=== PATIENT | female | born 1990 | race Caucasian/White ===

== ENCOUNTER 2025-03-24 21:29 | Emergency (ER) | payer OTHER, SELFPAY ==
[2025-03-24 21:35] VITALS: BP 168/79; PULSE 113; RESP 18; TEMP 37.1; O2SAT 100; BMI 60.0
--- NOTE | 2025-03-24 21:38 | DI.RAD.S_ITS ---
PROCEDURE: XR KNEE LT 1TO2V INDICATIONS: fall TECHNIQUE: 2 views of the knee were acquired. COMPARISON: None. FINDINGS: Bones: No fractures or dislocations. No suspicious bony lesions. Soft tissues: No joint effusion. No suspicious soft tissue calcifications. IMPRESSION: No acute bony abnormality or significant effusion. If symptoms persist with conservative management, consider cross-sectional imaging such as CT or MRI. Approved by: Sarah Vickers M.D.,Ph.D. on 03/24/2025 at 22:45
--- NOTE | 2025-03-24 21:38 | DI.RAD.S_ITS ---
PROCEDURE: XR RIBS RT 2V INDICATIONS: fall TECHNIQUE: 4 views of the ribs were acquired. COMPARISON: None. FINDINGS: Surgical changes and devices: None. Bones and chest wall: No fractures or dislocations. No suspicious bony lesions. Overlying soft tissues appear unremarkable. Lungs and pleura: The visualized lung appears clear. No pleural effusions or pneumothorax are visible. IMPRESSION: No acute displaced rib fracture. Approved by: Sarah Vickers M.D.,Ph.D. on 03/24/2025 at 22:46
[2025-03-24 22:52] VITALS: BP 179/108; O2SAT 100
--- NOTE | 2025-03-24 23:50 | ED.FALL ---
HPI - Fall General Chief Complaint: Fall Stated Complaint: Fall; L Knee/ R Side Rib pain Time Seen by Provider: 03/24/25 21:50 Source: patient Mode of arrival: Ambulatory History of Present Illness HPI Narrative: 34-year-old female got out of the shower had a mechanical fall landing on the right side of her chest hitting the toilet seat and her left knee went in the opposite direction now having difficulty breathing and ambulating at this time. Patient denies headache,dizziness, blurred vision, chest pain, shortness of breath, neck pain, bowel or bladder incontinence, or loss of consciousness. Patient has not taken anything prior to arrival. Other than what is stated 14 point review of system is negative. Related Data Home Medications ?Medication ?Instructions ?Recorded ?Confirmed ibuprofen 400 mg tablet 400 mg PO PRN ##0 11/26/11 Previous Rx's ?Medication ?Instructions ?Recorded diclofenac sodium 75 mg 75 mg PO BID PRN pain #30 tabs 03/25/25 tablet,delayed release Allergies Allergy/AdvReac Type Severity Reaction Status Date / Time SULFA Allergy Unknown Familiy Uncoded 03/24/25 21:35 allergy Review of Systems Review of Systems ROS Unobtainable: All systems reviewed & are unremarkable except as noted in HPI and below Patient History Smoking Status: Never smoker Exam Narrative Exam Narrative: GENERAL: [34] year old patient appears stated age. Well-developed patient, in mild distress. HEAD: Atraumatic. Normocephalic. EYES: Pupils equal round and reactive. Extraocular motions intact. No scleral icterus. No injection or drainage. ENT: Nose without bleeding, purulent drainage. Throat without erythema, tonsillar hypertrophy or exudate. Airway patent. NECK: Trachea midline. Non tender CARDIOVASCULAR: Regular rate and rhythm without murmurs, gallops, or rubs. RESPIRATORY: Clear to auscultation. Breath sounds equal bilaterally. No wheezes, rales, or rhonchi. Right posterolateral ribs 4 through 10 tender to palpation GASTROINTESTINAL: Abdomen soft, non-tender, nondistended. EXTREMITIES: No edema or joint tenderness. Left knee flexion to 30? medial and lateral joint line tenderness to palpate, anterior-posterior drawer varus valgus Mckenzie Narciso intact, +2 DP +2 PT cap refill less than 2nd BACK: Nontender without deformity or crepitance. No flank tenderness. NEURO: AOx3. SKIN: No rash or erythema of visible areas Initial Vital Signs Initial Vital Signs: Vital Signs Temperature 98.7 F 03/24/25 21:35 Pulse Rate 113 H 03/24/25 21:35 Respiratory Rate 18 03/24/25 21:35 Blood Pressure 168/79 H 03/24/25 21:35 Pulse Oximetry 100 03/24/25 21:35 Oxygen Delivery Method Room Air 03/24/25 21:35 Course Orders Ordered: ED Orders 03/24/25 21:38 XR knee LT 1to2V Stat XR ribs RT 2V Stat Vital Signs Vital signs: Vital Signs - 8 hr 03/24/25 21:35 Temperature 98.7 F Pulse Rate 113 H Respiratory Rate 18 Blood Pressure 168/79 H Pulse Oximetry 100 Oxygen Delivery Method Room Air MDM - Fall Imaging Data Chest x-ray: Radiologist's Impression: [address] [address] XRay Report Signed Patient: Pete Ervin MR#: [id number] : 06/22/2005 Acct:[id number] Age/Sex: 19 / F Date of Service: 03/24/25 Loc: ED Accession Number: [id number] Procedure: XR chest 1V Ordering Provider: Frankie Bess D.O. PROCEDURE: XR CHEST 1V INDICATIONS: suspected sepsis TECHNIQUE: One view of the chest was acquired. COMPARISON: None. FINDINGS: Surgical changes and devices: None. Lungs and pleura: Multifocal opacities in the right mid and lower lung. No pleural effusions or pneumothorax. Mediastinum: Mediastinal contours appear normal. Heart size is normal. Bones and chest wall: No suspicious bony lesions. Overlying soft tissues appear unremarkable. IMPRESSION: Right mid and lower lung pneumonia. Extremity x-ray #1: Radiologist's Impression: [address] [address] XRay Report Signed Patient: Tea Grant MR#: [id number] : 1990 Acct:[id number] Age/Sex: 34 / F Date of Service: 03/24/25 Loc: ED Accession Number: [id number] Procedure: XR knee LT 1to2V Ordering Provider: Frankie Bess D.O. PROCEDURE: XR KNEE LT 1TO2V INDICATIONS: fall TECHNIQUE: 2 views of the knee were acquired. COMPARISON: None. FINDINGS: Bones: No fractures or dislocations. No suspicious bony lesions. Soft tissues: No joint effusion. No suspicious soft tissue calcifications. IMPRESSION: No acute bony abnormality or significant effusion. MDM Narrative Medical decision making narrative: Vital signs, nurse triage note, medication list, previous ER visits, and all imaging studies reviewed. X-rays of chest ribs and knee showed no acute process. Patient given ibuprofen and [place] here. DC home on diclofenac rx. Diffential diagnosis includes pneumothorax, rib fracture, contusion, tendon, ligament injury, fracture, dislocation. Follow up with Orthopedics and or PCP 1-2 weeks if no improvement in symptoms. Discharge Plan Departure Patient Disposition: Home Clinical Impression: Acute knee pain, Contusion of rib Instructions: DI for Knee Pain Activity Restrictions/Additional Instructions: Return with new or worsening symptoms. Take your medicine as directed. Follow up with ortho MD referral. Prescriptions: New diclofenac sodium 75 mg tablet,delayed release (DR/EC) 75 mg PO BID PRN (Reason: pain) Qty: 30 0RF No Action ibuprofen 400 MG tablet 400 mg PO PRN Qty: 0 Referrals: Jamie Kraus MD [Physician, Orthopedic Surgery] - 3-5 days Referral Note: L knee pain, Xray neg, immobilizer and crutches, concern for possible ligament and or meniscus injury Stand Alone Forms: Patient Portal/API
[2025-03-25 00:04] VITALS: PULSE 104; O2SAT 99
[2025-03-25 00:06] VITALS: BP 152/67; PULSE 103; O2SAT 99
[2025-03-25] MEDS: IBUPROFEN 400 MG TABLET 800 MG PO (00:06)
[2025-03-25] MEDS: HYDROCODONE/ACET 5/325 TABLET 1 TAB PO (00:06)
== END 2025-03-25 00:43 | disposition home or self-care (01) ==
PROVIDERS: Emergency Provider Family Medicine
DX: S20.20XA Contusion of thorax, unspecified, initial encounter (principal); M25.562 Pain in left knee; R06.00 Dyspnea, unspecified; W18.09XA Striking against other object with subsequent fall, initial encounter
CPT/HCPCS: 71100; 73560; 99283

== ENCOUNTER 2025-07-02 16:17 | Inpatient (IN) | payer OTHER, SELFPAY ==
[2025-07-02] VITALS (23 sets, daily range): BP systolic 137–184; BP diastolic 67–94; PULSE 111–151; RESP 14–28; TEMP 36.7–37.8; O2SAT 93–99; BMI 51.5
--- NOTE | 2025-07-02 16:25 | ED.SEPSIS ---
HPI - Sepsis <Frankie Bess DO - Last Filed: 07/02/25 17:53> General Chief Complaint: Shortness of Breath/Dyspnea Evaluation Sepsis Onset Time: 16:26 Narrative: 35-year-old female presents with cough with sputum production dyspnea on exertion and diarrhea for the past 6 days feeling weak and dehydrated at this time. Patient denies fever, chills, body aches, sore throat, back pain, abdominal pain, nausea, vomiting, rash. Other than what is stated 14 point review of system is negative. <Ac Ventura MD - Last Filed: 07/03/25 03:29> Evaluation Sepsis Infection Criteria Present: Suspected New Infection Review of Systems <Frankie Bess DO - Last Filed: 07/02/25 17:53> Review of Systems ROS Unobtainable: All systems reviewed & are unremarkable except as noted in HPI and below Patient History <Frankie Bess DO - Last Filed: 07/02/25 17:53> Social History household members: family Smoking Status: Former smoker Exam <Frankie Bess DO - Last Filed: 07/02/25 17:53> Narrative Exam Narrative: GENERAL: [35] year old patient appears stated age. Well-developed patient, in mild distress. HEAD: Atraumatic. Normocephalic. EYES: Pupils equal round and reactive. Extraocular motions intact. No scleral icterus. No injection or drainage. ENT: Nose without bleeding, purulent drainage. Throat without erythema, tonsillar hypertrophy or exudate. Airway patent. NECK: Trachea midline. Non tender CARDIOVASCULAR: Regular rate and rhythm without murmurs, gallops, or rubs. RESPIRATORY: Diminished breath sounds with wheezing throughout. GASTROINTESTINAL: Abdomen soft, non-tender, nondistended. EXTREMITIES: No edema or joint tenderness. BACK: Nontender without deformity or crepitance. No flank tenderness. NEURO: AOx3. SKIN: No rash or erythema of visible areas Initial Vital Signs Initial Vital Signs: Vital Signs Pulse Rate 142 H 07/02/25 16:22 Respiratory Rate 25 H 07/02/25 16:22 Pulse Oximetry 93 07/02/25 16:22 <Ac Ventura MD - Last Filed: 07/03/25 03:29> Initial Vital Signs Initial Vital Signs: Vital Signs Pulse Rate 142 H 07/02/25 16:22 Respiratory Rate 25 H 07/02/25 16:22 Pulse Oximetry 93 07/02/25 16:22 Course <Frankie Bess, DO - Last Filed: 07/02/25 17:53> Orders Ordered: ED Orders 07/02/25 19:30 Troponin I Stat Acetaminophen (Acetaminophen 325 Mg Tablet) 650 mg PO Q6H PRN PRN Reason: Fever/Mild Pain (1-3) Albuterol/Ipratropium (Albuterol/Ipratropium 3 Ml Ampul) 3 ml INH [id number] JOAN Albuterol/Ipratropium (Albuterol/Ipratropium 3 Ml Ampul) 3 ml INH RTQ6HR PRN PRN Reason: Shortness Of Breath Enoxaparin Sodium (Enoxaparin 40 Mg/0.4 Ml Syringe) 40 mg SUBCUT DAILY JOAN Sodium Chloride (Normal Saline 0.9%) 1,000 mls @ 100 mls/hr IV CONT JOAN Last Admin: 07/03/25 01:55 Dose: 100 mls/hr Documented By: NGUYEN Azithromycin 500 mg/ Dextrose 250 mls @ 250 mls/hr IV Q24H JOAN Ceftriaxone Sodium 1,000 mg/ (Sodium Chloride) 100 mls @ 200 mls/hr IV Q24H JOAN Lorazepam (Lorazepam 2 Mg/Ml Inj) 0.5 mg IV Q6HR PRN PRN Reason: Anxiety Last Admin: 07/02/25 21:09 Dose: 0.5 mg Documented By: CAROL Naloxone HCl (Naloxone 0.4 Mg/Ml Vial) 0.2 mg IV Q2MIN PRN PRN Reason: Opiate Reversal Ondansetron HCl (Ondansetron 4 Mg/2 Ml Inj) 4 mg IV Q8HR PRN PRN Reason: Nausea And Vomiting Discontinued Medications Albuterol (Albuterol 2.5 Mg/3 Ml Neb (Adult)) 2.5 mg INH NOW ONE Stop: 07/02/25 17:44 Last Admin: 07/02/25 17:46 Dose: 2.5 mg Documented By: SADA Albuterol (Albuterol 2.5 Mg/3 Ml Neb (Adult)) 2.5 mg INH NOW ONE Stop: 07/02/25 19:41 Last Admin: 07/02/25 19:53 Dose: 2.5 mg Documented By: ANGEL Albuterol/Ipratropium (Albuterol/Ipratropium 3 Ml Ampul) 9 ml INH NOW ONE Stop: 07/02/25 16:28 Last Admin: 07/02/25 16:29 Dose: 9 ml Documented By: SADA Lactated Ringer's (Lactated Ringers) 1,000 mls @ 1,000 mls/hr IV BOLUS ONE Stop: 07/02/25 17:31 Last Infusion: 07/02/25 18:27 Dose: Infused Documented By: Admin: 07/02/25 17:22 Dose: 1,000 mls/hr Documented By: CAROL Ceftriaxone Sodium 1,000 mg/ (Sodium Chloride) 100 mls @ 200 mls/hr IV NOW ONE Stop: 07/02/25 17:51 Last Infusion: 07/02/25 19:08 Dose: Infused Documented By: Admin: 07/02/25 18:15 Dose: 200 mls/hr Documented By: CAROL Azithromycin 500 mg/ Dextrose 250 mls @ 250 mls/hr IV NOW ONE Stop: 07/02/25 17:51 Last Infusion: 07/02/25 21:05 Dose: Infused Documented By: Infusion: 07/02/25 19:47 Dose: 250 mls/hr Documented By: Infusion: 07/02/25 18:15 Dose: 0 mls/hr Documented By: Admin: 07/02/25 18:14 Dose: 250 mls/hr Documented By: CAROL Sodium Chloride (Normal Saline 0.9%) 1,000 mls @ 1,000 mls/hr IV BOLUS ONE Stop: 07/02/25 20:19 Last Infusion: 07/02/25 20:47 Dose: Infused Documented By: Admin: 07/02/25 19:24 Dose: 1,000 mls/hr Documented By: CAROL Sodium Chloride (Normal Saline 0.9%) 1,000 mls @ 1,000 mls/hr IV BOLUS ONE Stop: 07/02/25 21:32 Last Infusion: 07/02/25 22:55 Dose: Infused Documented By: Admin: 07/02/25 21:45 Dose: 1,000 mls/hr Documented By: CAROL Ceftriaxone Sodium 1,000 mg/ (Sodium Chloride) 100 mls @ 200 mls/hr IV DAILY JOAN Azithromycin 500 mg/ Dextrose 250 mls @ 250 mls/hr IV DAILY [facility] Methylprednisolone (Methylprednisolone Succ 125 Mg/2 Ml Vial) 125 mg IV NOW ONE Stop: 07/02/25 16:33 Last Admin: 07/02/25 17:22 Dose: 125 mg Documented By: CAROL Vital Signs Vital signs: Vital Signs - 8 hr 07/02/25 19:30 07/02/25 19:32 07/02/25 19:32 Pulse Rate 121 H 121 H Respiratory Rate 16 18 Blood Pressure 173/76 H Pulse Oximetry 95 95 Oxygen Delivery Method Fraction of Inspired Oxygen 07/02/25 19:53 07/02/25 20:00 07/02/25 20:00 Pulse Rate 112 H 113 H Respiratory Rate 20 22 Blood Pressure 143/71 H Pulse Oximetry 97 97 Oxygen Delivery Method Room Air Fraction of Inspired Oxygen 21 07/02/25 20:30 07/02/25 20:30 Pulse Rate 130 H Respiratory Rate 21 Blood Pressure 137/70 Pulse Oximetry 96 Oxygen Delivery Method Fraction of Inspired Oxygen <Ac Ventura MD - Last Filed: 07/03/25 03:29> Orders Ordered: ED Orders 07/02/25 19:30 Troponin I Stat Acetaminophen (Acetaminophen 325 Mg Tablet) 650 mg PO Q6H PRN PRN Reason: Fever/Mild Pain (1-3) Albuterol/Ipratropium (Albuterol/Ipratropium 3 Ml Ampul) 3 ml INH [id number] JOAN Albuterol/Ipratropium (Albuterol/Ipratropium 3 Ml Ampul) 3 ml INH RTQ6HR PRN PRN Reason: Shortness Of Breath Enoxaparin Sodium (Enoxaparin 40 Mg/0.4 Ml Syringe) 40 mg SUBCUT DAILY [facility] Sodium Chloride (Normal Saline 0.9%) 1,000 mls @ 100 mls/hr IV CONT JOAN Last Admin: 07/03/25 01:55 Dose: 100 mls/hr Documented By: NGUYEN Azithromycin 500 mg/ Dextrose 250 mls @ 250 mls/hr IV Q24H JOAN Ceftriaxone Sodium 1,000 mg/ (Sodium Chloride) 100 mls @ 200 mls/hr IV Q24H JOAN Lorazepam (Lorazepam 2 Mg/Ml Inj) 0.5 mg IV Q6HR PRN PRN Reason: Anxiety Last Admin: 07/02/25 21:09 Dose: 0.5 mg Documented By: CAROL Naloxone HCl (Naloxone 0.4 Mg/Ml Vial) 0.2 mg IV Q2MIN PRN PRN Reason: Opiate Reversal Ondansetron HCl (Ondansetron 4 Mg/2 Ml Inj) 4 mg IV Q8HR PRN PRN Reason: Nausea And Vomiting Discontinued Medications Albuterol (Albuterol 2.5 Mg/3 Ml Neb (Adult)) 2.5 mg INH NOW ONE Stop: 07/02/25 17:44 Last Admin: 07/02/25 17:46 Dose: 2.5 mg Documented By: SADA Albuterol (Albuterol 2.5 Mg/3 Ml Neb (Adult)) 2.5 mg INH NOW ONE Stop: 07/02/25 19:41 Last Admin: 07/02/25 19:53 Dose: 2.5 mg Documented By: ANGEL Albuterol/Ipratropium (Albuterol/Ipratropium 3 Ml Ampul) 9 ml INH NOW ONE Stop: 07/02/25 16:28 Last Admin: 07/02/25 16:29 Dose: 9 ml Documented By: SADA Lactated Ringer's (Lactated Ringers) 1,000 mls @ 1,000 mls/hr IV BOLUS ONE Stop: 07/02/25 17:31 Last Infusion: 07/02/25 18:27 Dose: Infused Documented By: Admin: 07/02/25 17:22 Dose: 1,000 mls/hr Documented By: CAROL Ceftriaxone Sodium 1,000 mg/ (Sodium Chloride) 100 mls @ 200 mls/hr IV NOW ONE Stop: 07/02/25 17:51 Last Infusion: 07/02/25 19:08 Dose: Infused Documented By: Admin: 07/02/25 18:15 Dose: 200 mls/hr Documented By: CAROL Azithromycin 500 mg/ Dextrose 250 mls @ 250 mls/hr IV NOW ONE Stop: 07/02/25 17:51 Last Infusion: 07/02/25 21:05 Dose: Infused Documented By: Infusion: 07/02/25 19:47 Dose: 250 mls/hr Documented By: Infusion: 07/02/25 18:15 Dose: 0 mls/hr Documented By: Admin: 07/02/25 18:14 Dose: 250 mls/hr Documented By: CAROL Sodium Chloride (Normal Saline 0.9%) 1,000 mls @ 1,000 mls/hr IV BOLUS ONE Stop: 07/02/25 20:19 Last Infusion: 07/02/25 20:47 Dose: Infused Documented By: Admin: 07/02/25 19:24 Dose: 1,000 mls/hr Documented By: CAROL Sodium Chloride (Normal Saline 0.9%) 1,000 mls @ 1,000 mls/hr IV BOLUS ONE Stop: 07/02/25 21:32 Last Infusion: 07/02/25 22:55 Dose: Infused Documented By: Admin: 07/02/25 21:45 Dose: 1,000 mls/hr Documented By: CAROL Ceftriaxone Sodium 1,000 mg/ (Sodium Chloride) 100 mls @ 200 mls/hr IV DAILY JOAN Azithromycin 500 mg/ Dextrose 250 mls @ 250 mls/hr IV DAILY JOAN Methylprednisolone (Methylprednisolone Succ 125 Mg/2 Ml Vial) 125 mg IV NOW ONE Stop: 07/02/25 16:33 Last Admin: 07/02/25 17:22 Dose: 125 mg Documented By: CAROL Vital Signs Vital signs: Vital Signs - 8 hr 07/02/25 19:30 07/02/25 19:32 07/02/25 19:32 Pulse Rate 121 H 121 H Respiratory Rate 16 18 Blood Pressure 173/76 H Pulse Oximetry 95 95 Oxygen Delivery Method Fraction of Inspired Oxygen 07/02/25 19:53 07/02/25 20:00 07/02/25 20:00 Pulse Rate 112 H 113 H Respiratory Rate 20 22 Blood Pressure 143/71 H Pulse Oximetry 97 97 Oxygen Delivery Method Room Air Fraction of Inspired Oxygen 21 07/02/25 20:30 07/02/25 20:30 Pulse Rate 130 H Respiratory Rate 21 Blood Pressure 137/70 Pulse Oximetry 96 Oxygen Delivery Method Fraction of Inspired Oxygen Sepsis Evaluation (ED) <Ac Ventura MD - Last Filed: 07/03/25 03:29> Level 1 - Infection Sepsis Infection Criteria Present: Suspected New Infection Level 2 - SIRS Sepsis SIRS Criteria Present: Pulse > 90 bpm Level 3 - Organ Dysfunction Sepsis Organ Dysfunction Criteria Present: Lactic Acid > 2 mmol/L Response It is my opinion that this patient have a likely infectious etiology for meeting sepsis criteria: Does Fluid calculation based on 30 mL/kg within 1hr of criteria: IBW used due to BMI>30 Antibiotics initiated within 1 hr of Sepis dx: Yes Tissue Perfusion Reassessed within 6 hrs of infusion start time: Yes Date of Tissue Perfusion Reassessment completed: 07/02/25 Time Tissue Perfusion Reassessment completed: 21:30 MDM - Sepsis <Frankie Bess, DO - Last Filed: 07/02/25 17:53> Lab Data 07/03/25 02:10 07/03/25 02:10 Labs: Lab Results 07/02/25 07/02/25 07/02/25 Range/Units 16:24 16:38 16:40 WBC 15.4 H (4.5-11.0) X10^3/uL RBC 5.21 H (4.0-5.2) X10^6/uL Hgb 15.1 (12.0-16.0) g/dL Hct 44.8 (36-46) % MCV 86.0 (80-100) fL MCH 29.1 (26-34) PG MCHC 33.8 (30-36) % RDW 15.1 H (11.6-14.8) % Plt Count 342 (150-400) X10^3/uL Neut % (Auto) 77.1 H (50-75) % Lymph % (Auto) 13.7 L (25-40) % [place] % (Auto) 6.0 (3-14) % Eos % (Auto) 3.0 (2-4) % Baso % (Auto) 0.2 (0-2) % Neut # (Auto) 69082 H (1184-5249) /uL Lymph # (Auto) 2100 (5489-1842) /uL [place] # (Auto) 900 (0-900) /uL Eos # (Auto) 500 H (0-450) /uL Baso # (Auto) 0 (0-100) /uL VBG pH 7.43 (7.33-7.43) VBG pCO2 33.7 L (45-50) mmHg VBG pO2 34 L (35-45) mmHg VBG HCO3 22 L (24-28) mmol/L VBG Total CO2 21 L (24-29) mmol/L VBG O2 Saturation 68 L (70-75) % VBG Base Excess -1.1 L (0-4) mmol/L FiO2 % 21.0 % % Sodium 139 (137-145) mmol/L Potassium 4.5 (3.4-5.1) mmol/L Chloride 104 (98-107) mmol/L Carbon Dioxide 17 L (22-32) mmol/L BUN 10 (7-17) mg/dL Creatinine 0.73 (0.52-1.04) mg/dL Estimated GFR > 60 (>60) mL/min BUN/Creatinine Ratio 13.7 (6-22) Glucose 137 H (70-99) mg/dL Lactate 2.4 H (0.7-2.1) mmol/L Calcium 9.8 (8.4-10.2) mg/dL Total Bilirubin 1.0 (0.2-1.3) mg/dL AST 41 H (14-36) IU/L ALT 27 (<35) IU/L Alkaline Phosphatase 98 (38-126) U/L Total Creatine Kinase 83 (30-135) U/L Troponin I < 0.012 (0.01-0.034) ng/mL Total Protein 10.4 H (6.3-8.2) g/dL Albumin 5.2 H (3.5-5.0) g/dL Globulin 5.2 H (1.7-4.1) g/dL Albumin/Globulin Ratio 1.0 (1.0-2.8) Procalcitonin 0.049 (<0.5) ng/mL Urine Color Urine Appearance Urine pH (4.5-8.0) Ur Specific Mcdonald (1.000-1.035) Urine Protein (Negative) Urine Glucose (UA) (Negative) g/dL Urine Ketones (NEGATIVE) Urine Occult Blood (Negative) Urine Nitrate (Negative) Urine Bilirubin (NEGATIVE) Ur Bilirubin Confirm (Negative) Urine Urobilinogen (0.2) E.U./dL Ur Leukocyte Esterase (NEGATIVE) Urine RBC (0-5/HPF) Urine WBC (0-5/HPF) Ur Squamous Epith Cells (0-5/HPF) Amorphous Sediment Urine Bacteria (None) Hyaline Casts (None) Urine Mucus (Negative) Ur Culture Indicated? Vol Urine Centrifuged SARS-CoV-2 (PCR) Negative (Negative) Influenza A (RT-PCR) Flu a negative (NEGATIVE) Influenza B (RT-PCR) Flu b negative (NEGATIVE) RSV (PCR) Negative (Negative) 07/02/25 07/02/25 Range/Units 18:10 19:30 WBC (4.5-11.0) X10^3/uL RBC (4.0-5.2) X10^6/uL Hgb (12.0-16.0) g/dL Hct (36-46) % MCV (80-100) fL MCH (26-34) PG MCHC (30-36) % RDW (11.6-14.8) % Plt Count (150-400) X10^3/uL Neut % (Auto) (50-75) % Lymph % (Auto) (25-40) % [place] % (Auto) (3-14) % Eos % (Auto) (2-4) % Baso % (Auto) (0-2) % Neut # (Auto) (9703-6953) /uL Lymph # (Auto) (5313-2255) /uL [place] # (Auto) (0-900) /uL Eos # (Auto) (0-450) /uL Baso # (Auto) (0-100) /uL VBG pH (7.33-7.43) VBG pCO2 (45-50) mmHg VBG pO2 (35-45) mmHg VBG HCO3 (24-28) mmol/L VBG Total CO2 (24-29) mmol/L VBG O2 Saturation (70-75) % VBG Base Excess (0-4) mmol/L FiO2 % % Sodium (137-145) mmol/L Potassium (3.4-5.1) mmol/L Chloride (98-107) mmol/L Carbon Dioxide (22-32) mmol/L BUN (7-17) mg/dL Creatinine (0.52-1.04) mg/dL Estimated GFR (>60) mL/min BUN/Creatinine Ratio (6-22) Glucose (70-99) mg/dL Lactate 3.0 H (0.7-2.1) mmol/L Calcium (8.4-10.2) mg/dL Total Bilirubin (0.2-1.3) mg/dL AST (14-36) IU/L ALT (<35) IU/L Alkaline Phosphatase (38-126) U/L Total Creatine Kinase (30-135) U/L Troponin I < 0.012 (0.01-0.034) ng/mL Total Protein (6.3-8.2) g/dL Albumin (3.5-5.0) g/dL Globulin (1.7-4.1) g/dL Albumin/Globulin Ratio (1.0-2.8) Procalcitonin (<0.5) ng/mL Urine Color Yellow Urine Appearance Clear Urine pH 5.5 (4.5-8.0) Ur Specific Mcdonald 1.025 (1.000-1.035) Urine Protein 3+ H (Negative) Urine Glucose (UA) Negative (Negative) g/dL Urine Ketones 3+ H (NEGATIVE) Urine Occult Blood 1+ H (Negative) Urine Nitrate Negative (Negative) Urine Bilirubin 1+ H (NEGATIVE) Ur Bilirubin Confirm Positive H (Negative) Urine Urobilinogen 0.2 (0.2) E.U./dL Ur Leukocyte Esterase Negative (NEGATIVE) Urine RBC 1-5/hpf (0-5/HPF) Urine WBC None seen (0-5/HPF) Ur Squamous Epith Cells 0-1 /hpf (0-5/HPF) Amorphous Sediment 1+ Urine Bacteria None seen (None) Hyaline Casts 1-5/lpf (None) Urine Mucus 1+ H (Negative) Ur Culture Indicated? Cult not indicated Vol Urine Centrifuged 10ml (spun) SARS-CoV-2 (PCR) (Negative) Influenza A (RT-PCR) (NEGATIVE) Influenza B (RT-PCR) (NEGATIVE) RSV (PCR) (Negative) Point of Care Testing Test Results Negative Urine Dip Bedside Urine Glucose Negative Bedside Urine Bilirubin - Negative Bedside Urine Ketone +++ 80 Urine Specific Mcdonald 1.025 Bedside Urine Occult Blood ++ Bedside Urine pH 6.0 Bedside Urine Protein +++ 300 Bedside Urine Urobilinogen - Negative Bedside Urine Nitrite - Negative Bedside Urine Leukocytes - Negative Esterase ECG Data Interpretation: Sinus Tach HR 114 SC 128 QRS [address]-t wave change No previous EKG to compare MDM Narrative Medical decision making narrative: All lab work, vital signs, nurse triage note, medication list, previous ER visits, and all imaging studies reviewed. White count 15.4 hemoglobin 15.1 platelets 342 VBG pH 7.43 pCO2 33.7 bicarb 22 be base excess-1.1 O2 sat 68L. Sodium 139 potassium 4.5 chloride 104 bicarb 17 BUN 10 creatinine 0.73 glucose 137 lactic acid 2.4 troponin normal COVID flu RSV negative. CTA pending. Patient given fluids, soluMedrol, Rocephin, Zithromax. <Ac Ventura MD - Last Filed: 07/03/25 03:29> Differential Diagnosis Current stage of sepsis: sepsis Possible source sepsis: pulmonary Condition is:: Inadequately Controlled Condition is at treatment goal?: No Discussed with:: Persisting tachycardia despite fluid boluses and early antibiotics, normotensive however, no shock, hospitalist contacted regarding admission for further treatment inpatient Lab Data Attestation: I reviewed the patient's lab results. Lab results narrative: White blood cell count 55000, hemoglobin 15.1, platelets adequate. Glucose 137. Renal function normal, serum CO2 17 slight decreased, normal electrolytes. Venous blood gas with pH 7.43, no carbon dioxide retention. Liver functions and lipase normal. Urine dip negative. Urine test negative. Initial lactate 2.4 mildly elevated. COVID influenza RSV negative. Labs: Lab Results 07/02/25 07/02/25 07/02/25 Range/Units 16:24 16:38 16:40 WBC 15.4 H (4.5-11.0) X10^3/uL RBC 5.21 H (4.0-5.2) X10^6/uL Hgb 15.1 (12.0-16.0) g/dL Hct 44.8 (36-46) % MCV 86.0 (80-100) fL MCH 29.1 (26-34) PG MCHC 33.8 (30-36) % RDW 15.1 H (11.6-14.8) % Plt Count 342 (150-400) X10^3/uL Neut % (Auto) 77.1 H (50-75) % Lymph % (Auto) 13.7 L (25-40) % [place] % (Auto) 6.0 (3-14) % Eos % (Auto) 3.0 (2-4) % Baso % (Auto) 0.2 (0-2) % Neut # (Auto) 85598 H (7031-5846) /uL Lymph # (Auto) 2100 (7061-9705) /uL [place] # (Auto) 900 (0-900) /uL Eos # (Auto) 500 H (0-450) /uL Baso # (Auto) 0 (0-100) /uL VBG pH 7.43 (7.33-7.43) VBG pCO2 33.7 L (45-50) mmHg VBG pO2 34 L (35-45) mmHg VBG HCO3 22 L (24-28) mmol/L VBG Total CO2 21 L (24-29) mmol/L VBG O2 Saturation 68 L (70-75) % VBG Base Excess -1.1 L (0-4) mmol/L FiO2 % 21.0 % % Sodium 139 (137-145) mmol/L Potassium 4.5 (3.4-5.1) mmol/L Chloride 104 (98-107) mmol/L Carbon Dioxide 17 L (22-32) mmol/L BUN 10 (7-17) mg/dL Creatinine 0.73 (0.52-1.04) mg/dL Estimated GFR > 60 (>60) mL/min BUN/Creatinine Ratio 13.7 (6-22) Glucose 137 H (70-99) mg/dL Lactate 2.4 H (0.7-2.1) mmol/L Calcium 9.8 (8.4-10.2) mg/dL Total Bilirubin 1.0 (0.2-1.3) mg/dL AST 41 H (14-36) IU/L ALT 27 (<35) IU/L Alkaline Phosphatase 98 (38-126) U/L Total Creatine Kinase 83 (30-135) U/L Troponin I < 0.012 (0.01-0.034) ng/mL Total Protein 10.4 H (6.3-8.2) g/dL Albumin 5.2 H (3.5-5.0) g/dL Globulin 5.2 H (1.7-4.1) g/dL Albumin/Globulin Ratio 1.0 (1.0-2.8) Procalcitonin 0.049 (<0.5) ng/mL Urine Color Urine Appearance Urine pH (4.5-8.0) Ur Specific Mcdonald (1.000-1.035) Urine Protein (Negative) Urine Glucose (UA) (Negative) g/dL Urine Ketones (NEGATIVE) Urine Occult Blood (Negative) Urine Nitrate (Negative) Urine Bilirubin (NEGATIVE) Ur Bilirubin Confirm (Negative) Urine Urobilinogen (0.2) E.U./dL Ur Leukocyte Esterase (NEGATIVE) Urine RBC (0-5/HPF) Urine WBC (0-5/HPF) Ur Squamous Epith Cells (0-5/HPF) Amorphous Sediment Urine Bacteria (None) Hyaline Casts (None) Urine Mucus (Negative) Ur Culture Indicated? Vol Urine Centrifuged SARS-CoV-2 (PCR) Negative (Negative) Influenza A (RT-PCR) Flu a negative (NEGATIVE) Influenza B (RT-PCR) Flu b negative (NEGATIVE) RSV (PCR) Negative (Negative) 07/02/25 07/02/25 Range/Units 18:10 19:30 WBC (4.5-11.0) X10^3/uL RBC (4.0-5.2) X10^6/uL Hgb (12.0-16.0) g/dL Hct (36-46) % MCV (80-100) fL MCH (26-34) PG MCHC (30-36) % RDW (11.6-14.8) % Plt Count (150-400) X10^3/uL Neut % (Auto) (50-75) % Lymph % (Auto) (25-40) % [place] % (Auto) (3-14) % Eos % (Auto) (2-4) % Baso % (Auto) (0-2) % Neut # (Auto) (9712-8153) /uL Lymph # (Auto) (5612-9440) /uL [place] # (Auto) (0-900) /uL Eos # (Auto) (0-450) /uL Baso # (Auto) (0-100) /uL VBG pH (7.33-7.43) VBG pCO2 (45-50) mmHg VBG pO2 (35-45) mmHg VBG HCO3 (24-28) mmol/L VBG Total CO2 (24-29) mmol/L VBG O2 Saturation (70-75) % VBG Base Excess (0-4) mmol/L FiO2 % % Sodium (137-145) mmol/L Potassium (3.4-5.1) mmol/L Chloride (98-107) mmol/L Carbon Dioxide (22-32) mmol/L BUN (7-17) mg/dL Creatinine (0.52-1.04) mg/dL Estimated GFR (>60) mL/min BUN/Creatinine Ratio (6-22) Glucose (70-99) mg/dL Lactate 3.0 H (0.7-2.1) mmol/L Calcium (8.4-10.2) mg/dL Total Bilirubin (0.2-1.3) mg/dL AST (14-36) IU/L ALT (<35) IU/L Alkaline Phosphatase (38-126) U/L Total Creatine Kinase (30-135) U/L Troponin I < 0.012 (0.01-0.034) ng/mL Total Protein (6.3-8.2) g/dL Albumin (3.5-5.0) g/dL Globulin (1.7-4.1) g/dL Albumin/Globulin Ratio (1.0-2.8) Procalcitonin (<0.5) ng/mL Urine Color Yellow Urine Appearance Clear Urine pH 5.5 (4.5-8.0) Ur Specific [place]cd[place] 1.025 (1.000-1.035) Urine Protein 3+ H (Negative) Urine Glucose (UA) Negative (Negative) g/dL Urine Ketones 3+ H (NEGATIVE) Urine Occult Blood 1+ H (Negative) Urine Nitrate Negative (Negative) Urine Bilirubin 1+ H (NEGATIVE) Ur Bilirubin Confirm Positive H (Negative) Urine Urobilinogen 0.2 (0.2) E.U./dL Ur Leukocyte Esterase Negative (NEGATIVE) Urine RBC 1-5/hpf (0-5/HPF) Urine WBC None seen (0-5/HPF) Ur Squamous Epith Cells 0-1 /hpf (0-5/HPF) Amorphous Sediment 1+ Urine Bacteria None seen (None) Hyaline Casts 1-5/lpf (None) Urine Mucus 1+ H (Negative) Ur Culture Indicated? Cult not indicated Vol Urine Centrifuged 10ml (spun) SARS-CoV-2 (PCR) (Negative) Influenza A (RT-PCR) (NEGATIVE) Influenza B (RT-PCR) (NEGATIVE) RSV (PCR) (Negative) Point of Care Testing Test Results Negative Urine Dip Bedside Urine Glucose Negative Bedside Urine Bilirubin - Negative Bedside Urine Ketone +++ 80 Urine Specific Mcdonald 1.025 Bedside Urine Occult Blood ++ Bedside Urine pH 6.0 Bedside Urine Protein +++ 300 Bedside Urine Urobilinogen - Negative Bedside Urine Nitrite - Negative Bedside Urine Leukocytes - Negative Esterase Imaging Data CTA chest PE protocol: Radiologist's Impression: [address] [address] [address] Scan Report Signed Patient: Tea Grant MR#: [id number] : 1990 Acct:[id number] Age/Sex: 35 / F Date of Service: 07/02/25 Loc: ED Accession Number: [id number] Procedure: CT angio chest PE protocol Ordering Provider: Frankie Bess D.O. PROCEDURE: CT ANGIO CHEST PE PROTOCOL INDICATIONS: SOB TECHNIQUE: After the administration of intravenous contrast, 2 mm thick sections acquired from the pulmonary apices to the posterior costophrenic angles. 3-dimensional maximum intensity projection (MIP) coronal and sagittal reformats were then acquired through the thorax. For radiation dose reduction, the following was used: automated exposure control, adjustment of mA and/or kV according to patient size. COMPARISON: None. FINDINGS: Image quality: Diagnostic. Pulmonary arteries: Pulmonary arteries are normal in size, and demonstrate no intraluminal filling defects to suggest central pulmonary embolism. Lower Neck: No enlarged lymph nodes. Thyroid: No thyroid nodules which require sonographic follow up, per consensus guidelines. Axillae: No enlarged lymph nodes. Chest Wall: Unremarkable. Bones: Prior right-sided rib fractures. No suspicious osseous lesion. Lungs and Pleura: No pneumothorax or pleural effusions. Mild patchy ground-glass opacity. A few small pulmonary nodules. For example: -Right middle lobe 0.5 cm, (5/197). -Right middle lobe 0.5 cm, (5/217). -Left lower lobe 0.5 cm, (5/236). Heart: Heart size is normal. No pericardial effusion. Thoracic Vessels: No aortic aneurysm. Mediastinum and Rajni: No enlarged lymph nodes. Esophagus: No wall thickening. No hiatal hernia. Upper Abdomen: Visualized upper abdomen solid organs and bowel loops appear normal. IMPRESSION: 1. No pulmonary embolism. 2. Mild bilateral patchy airspace opacity. Suspicious for pneumonia. 3. Small bilateral pulmonary nodules measuring 0.5 cm. -Follow-up chest CT could be considered in 1 year. Dictated by: Reji Zamarripa M.D. on 07/02/2025 at 18:29 Approved by: Reji Zamarripa M.D. on 07/02/2025 at 18:38 MDM Narrative Medical decision making narrative: All lab work, vital signs, nurse triage note, medication list, previous ER visits, and all imaging studies reviewed. White count 15.4 hemoglobin 15.1 platelets 342 VBG pH 7.43 pCO2 33.7 bicarb 22 be base excess-1.1 O2 sat 68L. Sodium 139 potassium 4.5 chloride 104 bicarb 17 BUN 10 creatinine 0.73 glucose 137 lactic acid 2.4 troponin normal COVID flu RSV negative. CTA pending. Patient given fluids, soluMedrol, Rocephin, Zithromax. 07/02/15, 1830, [place]. Sign-out from Dr. Bess. 35-year-old female with cough and subjective fevers, wheezing on exam, given IV Solu-Medrol and nebulized breathing treatments, has chest discomfort in context of recent coughing. Screening EKG apparently normal. COVID/flu/RSV swab negative. Initial troponin negative. Empiric IV antibiotics ceftriaxone with azithromycin ordered. Blood cultures sent. Initial lactate mild elevation. Normotensive, slight tachycardia in context of breathing treatments. CT angio study was ordered, results are pending. No oxygen requirement. Seems to be improving with the above therapies thus far. Assumed care. Lab data: Shows white blood cell count [id number] mildly elevated, lactate 2.4 mildly elevated. Urine test negative. Urine dip negative. Liver functions and lipase normal. Troponin negative/unmeasurable. COVID influenza negative. No chest x-ray study located. CTA chest study results pending. BNP not elevated. Repeat troponin also negative/unmeasurable. CTA chest PE protocol. IMPRESSION: 1. No pulmonary embolism. 2. Mild bilateral patchy airspace opacity. Suspicious for pneumonia. 3. Small bilateral pulmonary nodules measuring 0.5 cm. Follow-up chest CT could be considered in 1 year. See radiology report. IV antibiotics given prior for suspected pneumonia. Repeat lactate 3.0 increasing despite initial fluid bolus and antibiotics.. Sinus tachycardia persisting. No pulmonary embolus on CT angio, pneumonia suspected. No gross fluid overload. Consider sepsis. We will admit. Patient agreeable. We will contact hospitalist. [id number], case discussed with hospitalist Dr. Thomas who accepts patient for admission to inpatient service, can have 3rd L of IV fluids, ordered. Critical Care Time <Ac Ventura MD - Last Filed: 07/03/25 03:29> Critical Care Time Total Critical Care Time: 35 Attestation: The high probability of a clinically significant, sudden or life threatening deterioration of the [cardiopulmonary] system(s) required my full and direct attention, intervention and personal management. The aggregate critical care time was [35] minutes. This time is in addition to time spent performing reported procedures but includes the following: [x] Data Review and interpretation [x] Patient assessment and monitoring of vital signs [x] Documentation [x] Medication orders and management Discharge Plan Departure Patient Disposition: Admitted As Inpatient Clinical Impression: Pneumonia, Sinus tachycardia, Shortness of breath, Sepsis Admit Date/Time: 07/02/25 20:35 Admit Provider: Mayank Thomas
[2025-07-02] MEDS: ALBUTEROL/IPRATROPIUM 3 ML AMPUL 9 ML INH (16:29)
--- NOTE | 2025-07-02 16:30 | EKG_ITS ---
[place] [id number] [place] [id number] Test Date: 2025-07-02 Pat Name: Tea Grant Department: [facility] Room: Gender: Female Product Marketing Consultant: MANINDER : 1990 Requested By: Order Number: [id number] Reading MD: Michael Saldana Measurements Intervals Wilson Rate: 114 P: 61 UT: 128 QRS: 85 QRSD: 96 T: 36 QT: 388 QTc: 534 Interpretive Statements Sinus tachycardia Nonspecific ST abnormality Prolonged QT Electronically Signed On 07-03-2025 17:06:43 PDT by Michael Saldana
[2025-07-02 16:42] LABS: Base Excess VBG -1.1 mmol/L (0-4); HCO3 VBG 22 mmol/L (24-28); Oxygen Saturation VBG 68 % (70-75); PCO2 VBG 33.7 mmHg (45-50); PO2 VBG 34 mmHg (35-45); Total CO2 VBG 21 mmol/L (24-29); pH VBG 7.43 (7.33-7.43)
[2025-07-02 16:53] LABS: Add Manual Diff / Slide Review NO; Hematocrit 44.8 % (36-46); Hemoglobin 15.1 g/dL (12.0-16.0); Lymphocytes Absolute Auto 2100 /uL (1100-4500); Mean Corpuscular HGB Conc 33.8 % (30-36); Mean Corpuscular Hemoglobin 29.1 PG (26-34); Mean Corpuscular Volume 86.0 fL (80-100); Platelet Count 342 X10^3/uL (150-400)
--- NOTE | 2025-07-02 16:58 | DI.CT.S_ITS ---
PROCEDURE: CT ANGIO CHEST PE PROTOCOL INDICATIONS: SOB TECHNIQUE: After the administration of intravenous contrast, 2 mm thick sections acquired from the pulmonary apices to the posterior costophrenic angles. 3-dimensional maximum intensity projection (MIP) coronal and sagittal reformats were then acquired through the thorax. For radiation dose reduction, the following was used: automated exposure control, adjustment of mA and/or kV according to patient size. COMPARISON: None. FINDINGS: Image quality: Diagnostic. Pulmonary arteries: Pulmonary arteries are normal in size, and demonstrate no intraluminal filling defects to suggest central pulmonary embolism. Lower Neck: No enlarged lymph nodes. Thyroid: No thyroid nodules which require sonographic follow up, per consensus guidelines. Axillae: No enlarged lymph nodes. Chest Wall: Unremarkable. Bones: Prior right-sided rib fractures. No suspicious osseous lesion. Lungs and Pleura: No pneumothorax or pleural effusions. Mild patchy ground- glass opacity. A few small pulmonary nodules. For example: -Right middle lobe 0.5 cm, (5/197). -Right middle lobe 0.5 cm, (5/217). -Left lower lobe 0.5 cm, (5/236). Heart: Heart size is normal. No pericardial effusion. Thoracic Vessels: No aortic aneurysm. Mediastinum and Rajni: No enlarged lymph nodes. Esophagus: No wall thickening. No hiatal hernia. Upper Abdomen: Visualized upper abdomen solid organs and bowel loops appear normal. IMPRESSION: 1. No pulmonary embolism. 2. Mild bilateral patchy airspace opacity. Suspicious for pneumonia. 3. Small bilateral pulmonary nodules measuring 0.5 cm. -Follow-up chest CT could be considered in 1 year. Dictated by: Reji Zamarripa M.D. on 07/02/2025 at 18:29 Approved by: Reji Zamarripa M.D. on 07/02/2025 at 18:38
[2025-07-02 17:04] LABS: Alanine Aminotransferase 27 IU/L (<35); Albumin 5.2 g/dL (3.5-5.0); Albumin Globulin Ratio 1.0 (1.0-2.8); Alkaline Phosphatase 98 U/L (38-126); Blood Urea Nitrogen 10 mg/dL (7-17); Calcium 9.8 mg/dL (8.4-10.2); Carbon Dioxide 17 mmol/L (22-32); Chloride 104 mmol/L (98-107); Creatine Kinase 83 U/L (30-135); Estimated Glomerular Filt Rate > 60 mL/min (>60); Globulin 5.2 g/dL (1.7-4.1); Glucose 137 mg/dL (70-99); Potassium 4.5 mmol/L (3.4-5.1); Sodium 139 mmol/L (137-145); Total Protein 10.4 g/dL (6.3-8.2)
[2025-07-02 17:05] LABS: Lactate (Lactic Acid) 2.4 mmol/L (0.7-2.1)
[2025-07-02 17:06] LABS: HEMOLYSIS 96 (0-50)
[2025-07-02 17:17] LABS: Troponin I < 0.012 ng/mL (0.01-0.034)
[2025-07-02 17:21] LABS: Procalcitonin 0.049 ng/mL (<0.5)
[2025-07-02] MEDS: LACTATED RINGERS 1,000 ML 1000 ML IV (17:22)
[2025-07-02] MEDS: methylPREDNISolone succ 125 MG/2 ML VIAL IV (17:22)
[2025-07-02 17:37] LABS: Influenza A - CEPHEID Flu A NEGATIVE (NEGATIVE); Influenza B - CEPHEID Flu B NEGATIVE (NEGATIVE)
[2025-07-02 17:45] LABS: COVID-19 CEPHEID 4-PLEX PCR Negative (Negative)
[2025-07-02] MEDS: ALBUTEROL 2.5 MG/3 ML NEB (ADULT) INH ×2 (17:46→19:53)
[2025-07-02] MEDS: AZITHROMYCIN 500 MG in DEXTROSE 5% IN WATER 250 ML 250 MG IV (18:14)
[2025-07-02 18:22] LABS: Reflexed Lactate in 2 Hours Y
[2025-07-02 18:25] LABS: Appearance Urine UA CLEAR; Bilirubin Urine UA 1+ (NEGATIVE); Color Urine UA YELLOW; Glucose Urine UA NEGATIVE (Negative); Ketones Urine UA 3+ (NEGATIVE); Leukocyte Esterase Urine UA NEGATIVE (NEGATIVE); Nitrite Urine UA NEGATIVE (Negative); Occult Blood Urine UA 1+ (Negative); Protein Urine UA 3+ (Negative); Specific Gravity Urine UA 1.025 (1.000-1.035); Urobilinogen Urine UA 0.2 E.U./dL (0.2)
[2025-07-02 18:32] LABS: pH Urine UA 5.5 (4.5-8.0)
[2025-07-02 18:33] LABS: Culture Indicated Urine Cult Not Indicated
[2025-07-02 18:36] LABS: Ictotest Urine Positive (Negative)
[2025-07-02] MEDS: SODIUM CHLORIDE 0.9% 1,000 ML 1000 ML IV ×2 (19:24→21:45)
[2025-07-02 19:48] LABS: Lactate 2HR (Lactic Acid Rflx) 3.0 mmol/L (0.7-2.1)
[2025-07-02 20:00] LABS: Troponin I < 0.012 ng/mL (0.01-0.034)
--- NOTE | 2025-07-02 20:51 | PC.NURSE ---
2044: This RN checks on patient. Patient anterior lung sounds are coarse with expiratory wheeze. RT Hayden called to check on patient.
[2025-07-03] VITALS (7 sets, daily range): BP systolic 113–129; BP diastolic 56–58; PULSE 103–112; RESP 16–22; TEMP 36.6–37.2; O2SAT 96–98
[2025-07-03] MEDS: SODIUM CHLORIDE 0.9% 1,000 ML 100 ML IV (01:55)
[2025-07-03 02:19] LABS: Add Manual Diff / Slide Review NO; Hematocrit 38.0 % (36-46); Hemoglobin 13.0 g/dL (12.0-16.0); Lymphocytes Absolute Auto 700 /uL (1100-4500); Mean Corpuscular HGB Conc 34.2 % (30-36); Mean Corpuscular Hemoglobin 28.9 PG (26-34); Mean Corpuscular Volume 84.6 fL (80-100); Platelet Count 269 X10^3/uL (150-400)
[2025-07-03 03:03] LABS: Lactate (Lactic Acid) 1.8 mmol/L (0.7-2.1)
[2025-07-03 03:04] LABS: Blood Urea Nitrogen 7 mg/dL (7-17); Calcium 9.7 mg/dL (8.4-10.2); Carbon Dioxide 18 mmol/L (22-32); Chloride 110 mmol/L (98-107); Estimated Glomerular Filt Rate > 60 mL/min (>60); Glucose 163 mg/dL (70-99); HEMOLYSIS < 15 (0-50); Potassium 3.8 mmol/L (3.4-5.1); Sodium 140 mmol/L (137-145)
[2025-07-03 03:43] LABS: MRSA (Nasal) PCR NOT DETECTED (Not Detect)
--- NOTE | 2025-07-03 07:03 | P.HP_ITS ---
History of Present Illness History of Present Illness Date Patient Seen: 07/02/25 Time Patient Seen: 23:15 Chief complaint: SOB, UTI? Narrative: 35-year-old female with past medical history morbid obesity presents with complaint of shortness of breath and coughing. Per the patient's report, the patient started to have increased shortness of breath and a productive cough that started over the last few days. The patient also states that she feels dehydrated and generalized weakness. The patient denies any known sick contact or recent travel. The patient denies any prior history of known asthma or COPD. The patient otherwise denies any fever, chills, nausea, vomiting, diarrhea or chest pain. In the emergency room, the patient was hemodynamically stable though tachycardic. The patient was saturating well on room air but was having difficult to eat breathing per our ER physician. The patient also was reported to have wheezing on exam by ER physician. CT angio of the chest shows no PE but suggest possible signs of pneumonia. There is also incidental 0.5 cm nodule found. The patient was given Solu-Medrol DuoNebs. WBC was 15,000 and lactic acid was 2.4. Respiratory viral panel were negative. Patient received IV azithromycin and ceftriaxone and IV fluid. PFS Social History household members: family Smoking Status: Former smoker Meds Home Medications and Allergies Home Medications ?Medication ?Instructions ?Recorded ?Confirmed ?Type ibuprofen 400 mg tablet 400 mg PO PRN ##0 11/26/11 History diclofenac sodium 75 mg 75 mg PO BID PRN pain #30 ta bs 03/25/25 Rx tablet,delayed release Allergies Allergy/AdvReac Type Severity Reaction Status Date / Time SULFA Allergy Unknown Familiy Uncoded 03/24/25 21:35 allergy Review of Systems Review of Systems ROS: Yes All systems reviewed with the patient and are negative except as otherwise documented Exam Vital Signs (past 8 hours): - 07/02/25 23:20 07/02/25 23:30 07/03/25 04:00 Temperature 100.1 F H 98.6 F Pulse Rate 129 H 111 H Respiratory Rate 28 H 16 Blood Pressure 149/70 H 113/56 L Pulse Oximetry 94 96 Oxygen Delivery Method Nasal Cannula Oxygen Flow Rate 0 2 Fraction of Inspired Oxygen 21 SaO2/FiO2 Ratio 461 Oxygen Delivery Method Nasal Cannula Oxygen Flow Rate 2 Narrative Exam Narrative: Physical Exam: GENERAL: Morbidly obese felmale The patient is in some acute respiratory distressed. Awake and alert. HEENT: Nonicteric sclerae, PERRLA, EOMI. Oropharynx clear. Moist mucous membranes. Conjunctivae appear well perfused. HEART: Regular rate and rhythm without murmurs. No lower extremities edema. LUNGS: Bilateral wheezing but otheriwse Clear to auscultation bilaterally. No, crackles or rhonchi ABDOMEN: Soft, positive bowel sounds, nontender. SKIN: No rash, no excessive bruising, petechiae, or purpura. NEUROLOGIC: AxO x 3. Cranial nerves II-XII intact without motor/sensory deficit. Objective Labs 07/03/25 02:10 07/03/25 02:10 Labs: Laboratory Results - last 24 hr 07/02/25 07/02/25 07/02/25 16:24 16:38 16:40 WBC 15.4 H RBC 5.21 H Hgb 15.1 Hct 44.8 MCV 86.0 MCH 29.1 MCHC 33.8 RDW 15.1 H Plt Count 342 Neut % (Auto) 77.1 H Lymph % (Auto) 13.7 L Moore % (Auto) 6.0 Eos % (Auto) 3.0 Baso % (Auto) 0.2 Neut # (Auto) 30092 H Lymph # (Auto) 2100 Moore # (Auto) 900 Eos # (Auto) 500 H Baso # (Auto) 0 VBG pH 7.43 VBG pCO2 33.7 L VBG pO2 34 L VBG HCO3 22 L VBG Total CO2 21 L VBG O2 Saturation 68 L VBG Base Excess -1.1 L FiO2 % 21.0 % Sodium 139 Potassium 4.5 Chloride 104 Carbon Dioxide 17 L BUN 10 Creatinine 0.73 Estimated GFR > 60 BUN/Creatinine Ratio 13.7 Glucose 137 H Lactate 2.4 H Calcium 9.8 Total Bilirubin 1.0 AST 41 H ALT 27 Alkaline Phosphatase 98 Total Creatine Kinase 83 Troponin I < 0.012 Total Protein 10.4 H Albumin 5.2 H Globulin 5.2 H Albumin/Globulin Ratio 1.0 Procalcitonin 0.049 Urine Color Urine Appearance Urine pH Ur Specific [place] Urine Protein Urine Glucose (UA) Urine Ketones Urine Occult Blood Urine Nitrate Urine Bilirubin Ur Bilirubin Confirm Urine Urobilinogen Ur Leukocyte Esterase Urine RBC Urine WBC Ur Squamous Epith Cells Amorphous Sediment Urine Bacteria Hyaline Casts Urine Mucus Ur Culture Indicated? Vol Urine Centrifuged Nasal Screen MRSA (PCR) SARS-CoV-2 (PCR) Negative Influenza A (RT-PCR) Flu a negative Influenza B (RT-PCR) Flu b negative RSV (PCR) Negative 07/02/25 07/02/25 07/03/25 18:10 19:30 01:49 WBC RBC Hgb Hct MCV MCH MCHC RDW Plt Count Neut % (Auto) Lymph % (Auto) Moore % (Auto) Eos % (Auto) Baso % (Auto) Neut # (Auto) Lymph # (Auto) Moore # (Auto) Eos # (Auto) Baso # (Auto) VBG pH VBG pCO2 VBG pO2 VBG HCO3 VBG Total CO2 VBG O2 Saturation VBG Base Excess FiO2 % Sodium Potassium Chloride Carbon Dioxide BUN Creatinine Estimated GFR BUN/Creatinine Ratio Glucose Lactate 3.0 H Calcium Total Bilirubin AST ALT Alkaline Phosphatase Total Creatine Kinase Troponin I < 0.012 Total Protein Albumin Globulin Albumin/Globulin Ratio Procalcitonin Urine Color Yellow Urine Appearance Clear Urine pH 5.5 Ur Specific [place] 1.025 Urine Protein 3+ H Urine Glucose (UA) Negative Urine Ketones 3+ H Urine Occult Blood 1+ H Urine Nitrate Negative Urine Bilirubin 1+ H Ur Bilirubin Confirm Positive H Urine Urobilinogen 0.2 Ur Leukocyte Esterase Negative Urine RBC 1-5/hpf Urine WBC None seen Ur Squamous Epith Cells 0-1 /hpf Amorphous Sediment 1+ Urine Bacteria None seen Hyaline Casts 1-5/lpf Urine Mucus 1+ H Ur Culture Indicated? Cult not indicated Vol Urine Centrifuged 10ml (spun) Nasal Screen MRSA (PCR) Not detected SARS-CoV-2 (PCR) Influenza A (RT-PCR) Influenza B (RT-PCR) RSV (PCR) 07/03/25 02:10 WBC 12.3 H RBC 4.49 Hgb 13.0 Hct 38.0 MCV 84.6 MCH 28.9 MCHC 34.2 RDW 15.4 H Plt Count 269 Neut % (Auto) 92.6 H Lymph % (Auto) 5.5 L Moore % (Auto) 1.4 L Eos % (Auto) 0.1 L Baso % (Auto) 0.4 Neut # (Auto) 70420 H Lymph # (Auto) 700 L Moore # (Auto) 200 Eos # (Auto) 0 Baso # (Auto) 100 VBG pH VBG pCO2 VBG pO2 VBG HCO3 VBG Total CO2 VBG O2 Saturation VBG Base Excess FiO2 % Sodium 140 Potassium 3.8 Chloride 110 H Carbon Dioxide 18 L BUN 7 Creatinine 0.63 Estimated GFR > 60 BUN/Creatinine Ratio 11.1 Glucose 163 H Lactate 1.8 Calcium 9.7 Total Bilirubin AST ALT Alkaline Phosphatase Total Creatine Kinase Troponin I Total Protein Albumin Globulin Albumin/Globulin Ratio Procalcitonin Urine Color Urine Appearance Urine pH Ur Specific [place] Urine Protein Urine Glucose (UA) Urine Ketones Urine Occult Blood Urine Nitrate Urine Bilirubin Ur Bilirubin Confirm Urine Urobilinogen Ur Leukocyte Esterase Urine RBC Urine WBC Ur Squamous Epith Cells Amorphous Sediment Urine Bacteria Hyaline Casts Urine Mucus Ur Culture Indicated? Vol Urine Centrifuged Nasal Screen MRSA (PCR) SARS-CoV-2 (PCR) Influenza A (RT-PCR) Influenza B (RT-PCR) RSV (PCR) Assessment & Plan Assessment & Plan narrative: Sepsis. Admit the patient to medical telemetry as inpatient. Likely source pneumonia. Treat underlying infection with IV fluid monitor hemodynamic. Community-acquired pneumonia. Continue IV ceftriaxone and azithromycin. Possible undiagnosed asthma with exacerbation. Continue Solu-Medrol and DuoNebs. Patient might need a formal PFT studies to assess for undiagnosed asthma as outpatient. Morbid obesity. Elevated lactic acid. 2.4. IV fluid and trend lactic acid to normal. DVT prophylaxis Lovenox CODE STATUS full code. Disposition likely home in 2 days - As the provider of this telehealth evaluation, requested by the patient's evaluating physician, I attest that I introduced myself to the patient, provided my credentials and determined that telemedicine via a real-time, 2 way interactive audio and video platform is an appropriate and effective means of providing this service. - I reviewed the patient's chart and had a discussion with the member of the patient's treatment team. - The patient and I mutually agreed with continuation of this evaluation via telemedicine. The patient consented for the telemedicine evaluation. - This virtual encounter was taken place from [place] by Dr. Mayank Thomas. The patient was evaluated at [facility]. The encounter was approximately 35 minutes. The nurse was present during the entire time of the encounter and was able assists with the stethoscope to listen to the patients. Time-Based Coding :: [TOTAL MINUTES] spent with patient and on the chart (including review of chart, obtaining history, exam, reviewing outside data, placing orders, documenting exam and treatment plan, and counseling patient) on [DATE].
--- NOTE | 2025-07-03 07:42 | PM.PN.1 ---
Subjective Subjective Interval history: Summary (night doctor): 35-year-old female with past medical history morbid obesity presents with complaint of shortness of breath and coughing. Per the patient's report, the patient started to have increased shortness of breath and a productive cough that started over the last few days. The patient also states that she feels dehydrated and generalized weakness. The patient denies any known sick contact or recent travel. The patient denies any prior history of known asthma or COPD. The patient otherwise denies any fever, chills, nausea, vomiting, diarrhea or chest pain. In the emergency room, the patient was hemodynamically stable though tachycardic. The patient was saturating well on room air but was having difficult to eat breathing per our ER physician. The patient also was reported to have wheezing on exam by ER physician. CT angio of the chest shows no PE but suggest possible signs of pneumonia. There is also incidental 0.5 cm nodule found. The patient was given Solu-Medrol DuoNebs. WBC was 15,000 and lactic acid was 2.4. Respiratory viral panel were negative. Patient received IV azithromycin and ceftriaxone and IV fluid. S: She is having a lot of dyspnea with exertion, some cough. She is having a lot of anxiety. O: NAD, alert and oriented. Fluent speech. Lungs are clear, normal rate and effort. Heart is regular, no murmur gallop or rub. Abdomen is soft, non distended. Extremities are free of edema. IMAGING: Chest CTA: 1. No pulmonary embolism. 2. Mild bilateral patchy airspace opacity. Suspicious for pneumonia. 3. Small bilateral pulmonary nodules measuring 0.5 cm. -Follow-up chest CT could be considered in 1 year. A/P: 1. Sepsis. Admit the patient to medical telemetry as inpatient. Likely source pneumonia. Treat underlying infection with IV fluid monitor hemodynamic. 2. Community-acquired pneumonia. Continue IV ceftriaxone and azithromycin. 3. Possible undiagnosed asthma with exacerbation. Continue Solu-Medrol and DuoNebs. Patient might need a formal PFT studies to assess for undiagnosed asthma as outpatient. 4. Morbid obesity, BMI 51. 5. Elevated lactic acid. 2.4. IV fluid and trend lactic acid to normal. PLAN: -Continue current meds and use Ativan as needed. -IVF. -Continue Abx. ZAIN: 07/04. DVT prophylaxis Lovenox. CODE STATUS full code. Exam Vital Signs (past 8 hours): - 07/03/25 04:00 Temperature 98.6 F Pulse Rate 111 H Respiratory Rate 16 Blood Pressure 113/56 L Pulse Oximetry 96 Oxygen Flow Rate 2 Fraction of Inspired Oxygen 21 SaO2/FiO2 Ratio 461 Oxygen Delivery Method Nasal Cannula Oxygen Flow Rate 2 Objective Labs 07/03/25 02:10 07/03/25 02:10 Labs: Laboratory Results - last 24 hr 07/02/25 07/02/25 07/02/25 16:24 16:38 16:40 WBC 15.4 H RBC 5.21 H Hgb 15.1 Hct 44.8 MCV 86.0 MCH 29.1 MCHC 33.8 RDW 15.1 H Plt Count 342 Neut % (Auto) 77.1 H Lymph % (Auto) 13.7 L [place] % (Auto) 6.0 Eos % (Auto) 3.0 Baso % (Auto) 0.2 Neut # (Auto) 38954 H Lymph # (Auto) 2100 [place] # (Auto) 900 Eos # (Auto) 500 H Baso # (Auto) 0 VBG pH 7.43 VBG pCO2 33.7 L VBG pO2 34 L VBG HCO3 22 L VBG Total CO2 21 L VBG O2 Saturation 68 L VBG Base Excess -1.1 L FiO2 % 21.0 % Sodium 139 Potassium 4.5 Chloride 104 Carbon Dioxide 17 L BUN 10 Creatinine 0.73 Estimated GFR > 60 BUN/Creatinine Ratio 13.7 Glucose 137 H Lactate 2.4 H Calcium 9.8 Total Bilirubin 1.0 AST 41 H ALT 27 Alkaline Phosphatase 98 Total Creatine Kinase 83 Troponin I < 0.012 Total Protein 10.4 H Albumin 5.2 H Globulin 5.2 H Albumin/Globulin Ratio 1.0 Procalcitonin 0.049 Urine Color Urine Appearance Urine pH Ur Specific [place] Urine Protein Urine Glucose (UA) Urine Ketones Urine Occult Blood Urine Nitrate Urine Bilirubin Ur Bilirubin Confirm Urine Urobilinogen Ur Leukocyte Esterase Urine RBC Urine WBC Ur Squamous Epith Cells Amorphous Sediment Urine Bacteria Hyaline Casts Urine Mucus Ur Culture Indicated? Vol Urine Centrifuged Nasal Screen MRSA (PCR) SARS-CoV-2 (PCR) Negative Influenza A (RT-PCR) Flu a negative Influenza B (RT-PCR) Flu b negative RSV (PCR) Negative 07/02/25 07/02/25 07/03/25 18:10 19:30 01:49 WBC RBC Hgb Hct MCV MCH MCHC RDW Plt Count Neut % (Auto) Lymph % (Auto) [place] % (Auto) Eos % (Auto) Baso % (Auto) Neut # (Auto) Lymph # (Auto) [place] # (Auto) Eos # (Auto) Baso # (Auto) VBG pH VBG pCO2 VBG pO2 VBG HCO3 VBG Total CO2 VBG O2 Saturation VBG Base Excess FiO2 % Sodium Potassium Chloride Carbon Dioxide BUN Creatinine Estimated GFR BUN/Creatinine Ratio Glucose Lactate 3.0 H Calcium Total Bilirubin AST ALT Alkaline Phosphatase Total Creatine Kinase Troponin I < 0.012 Total Protein Albumin Globulin Albumin/Globulin Ratio Procalcitonin Urine Color Yellow Urine Appearance Clear Urine pH 5.5 Ur Specific [place] 1.025 Urine Protein 3+ H Urine Glucose (UA) Negative Urine Ketones 3+ H Urine Occult Blood 1+ H Urine Nitrate Negative Urine Bilirubin 1+ H Ur Bilirubin Confirm Positive H Urine Urobilinogen 0.2 Ur Leukocyte Esterase Negative Urine RBC 1-5/hpf Urine WBC None seen Ur Squamous Epith Cells 0-1 /hpf Amorphous Sediment 1+ Urine Bacteria None seen Hyaline Casts 1-5/lpf Urine Mucus 1+ H Ur Culture Indicated? Cult not indicated Vol Urine Centrifuged 10ml (spun) Nasal Screen MRSA (PCR) Not detected SARS-CoV-2 (PCR) Influenza A (RT-PCR) Influenza B (RT-PCR) RSV (PCR) 07/03/25 02:10 WBC 12.3 H RBC 4.49 Hgb 13.0 Hct 38.0 MCV 84.6 MCH 28.9 MCHC 34.2 RDW 15.4 H Plt Count 269 Neut % (Auto) 92.6 H Lymph % (Auto) 5.5 L [place] % (Auto) 1.4 L Eos % (Auto) 0.1 L Baso % (Auto) 0.4 Neut # (Auto) 99312 H Lymph # (Auto) 700 L [place] # (Auto) 200 Eos # (Auto) 0 Baso # (Auto) 100 VBG pH VBG pCO2 VBG pO2 VBG HCO3 VBG Total CO2 VBG O2 Saturation VBG Base Excess FiO2 % Sodium 140 Potassium 3.8 Chloride 110 H Carbon Dioxide 18 L BUN 7 Creatinine 0.63 Estimated GFR > 60 BUN/Creatinine Ratio 11.1 Glucose 163 H Lactate 1.8 Calcium 9.7 Total Bilirubin AST ALT Alkaline Phosphatase Total Creatine Kinase Troponin I Total Protein Albumin Globulin Albumin/Globulin Ratio Procalcitonin Urine Color Urine Appearance Urine pH Ur Specific [place] Urine Protein Urine Glucose (UA) Urine Ketones Urine Occult Blood Urine Nitrate Urine Bilirubin Ur Bilirubin Confirm Urine Urobilinogen Ur Leukocyte Esterase Urine RBC Urine WBC Ur Squamous Epith Cells Amorphous Sediment Urine Bacteria Hyaline Casts Urine Mucus Ur Culture Indicated? Vol Urine Centrifuged Nasal Screen MRSA (PCR) SARS-CoV-2 (PCR) Influenza A (RT-PCR) Influenza B (RT-PCR) RSV (PCR) PFSH Social History household members: family Smoking Status: Former smoker Assessment & Plan Time-Based Coding :: [TOTAL MINUTES] spent with patient and on the chart (including review of chart, obtaining history, exam, reviewing outside data, placing orders, documenting exam and treatment plan, and counseling patient) on [DATE].
[2025-07-03] MEDS: BENZONATATE 100 MG CAPSULE PO (10:01)
[2025-07-03] MEDS: ALBUTEROL/IPRATROPIUM 3 ML AMPUL INH ×3 (10:16→18:07)
--- NOTE | 2025-07-03 12:22 | CM.DANOTE ---
DCP Assessment Note-Brief pt is a 35yo F admitted with sepsis/pneumonia. currently on 3ltrs O2, none at baseline. MEASURING CLERK reviewed EMR. per provider, anticipate dc tomorrow. MEASURING CLERK attempted to meet with pt in room, sleeping heavily. allowed to rest. per RN, no O2 at baseline. no obvious CM/DCP needs. per chart, pt lives with family indep in [place]. P: no identified DCP/CM needs at this time per chart review/provider/RN report. anticipate dc home tomorrow. will continue to follow in case any DCP needs should arise LILY Miller Discharge Planning/Care Management CM Discharge Assessment Start: 07/02/25 23:30 Freq: Status: Active Protocol: Document 07/03/25 12:21 (Rec: 07/03/25 12:22 [id number]) Discharge Planning Assessment Assigned Discharge LILY Garcia [employer] Insurance Comment [facility] DPOA/Assigned family Daniel Designee Name Contact Information [phone] Advance Directives? No History Provided By Patient Prior Living House Arrangements Household Members family Independent with ADL Yes 's Is patient alert and Yes oriented? Barriers to No Discharge Discharge Plan Home Referrals Initiated None needed Review Status In Process Please Provide Date 07/03/25 Initial DC Assessment Was Performed Next Review Type Continued Stay Review
[2025-07-03] MEDS: ACETAMINOPHEN 325 MG TABLET 650 MG PO (12:49)
[2025-07-03 13:48] LABS: Acinetobacter calcoa-baumannii Not Detected (Not Detect); Bacteroides fragilis Not Detected (Not Detect); Candida auris Not Detected (Not Detect); Candida glabrata Not Detected (Not Detect); Cryptococcus neoformans/gatti Not Detected (Not Detect); Enterobacterales Not Detected (Not Detect); Enterococcus faecalis Not Detected (Not Detect); Enterococcus faecium Not Detected (Not Detect); Klebsiella aerogenes Not Detected (Not Detect); Proteus species Not Detected (Not Detect); Serratia marcescens Not Detected (Not Detect); Staphylococcus epidermidis Detected (Not Detect); Staphylococcus lugdunensis Not Detected (Not Detect); Staphylococcus species Detected (Not Detect); Stenotrophomonas maltophilia Not Detected (Not Detect); Streptococcus agalactiae (Gr B Not Detected (Not Detect); Streptococcus pneumonia Not Detected (Not Detect); Streptococcus pyogenes (Gr A) Not Detected (Not Detect); Streptococcus species Not Detected (Not Detect); mecA/C Resistance Not Detected (Not Detect)
--- NOTE | 2025-07-03 17:15 | PC.NURSE ---
Care assumed of patient as she is transferred from ICU to room 215. VSS, afebrile on #L NC 6 % O2. Patient has a productive cough and some audible wheezing. A&OX4. She receivved dinner tray and tolerating it well. IV abx per orders, call light in reach, continuous pulse ox, frequent rounding.
--- NOTE | 2025-07-03 17:34 | PC.NURSE ---
Per NOC shift nurse Fili NIELSEN NOC shift provider d/c fluids
[2025-07-03] MEDS: AZITHROMYCIN 500 MG in DEXTROSE 5% IN WATER 250 ML 250 MG IV (19:29)
[2025-07-03] MEDS: ENOXAPARIN 40 MG/0.4 ML SYRINGE SUBCUT (20:20)
[2025-07-04] VITALS (8 sets, daily range): BP systolic 122–143; BP diastolic 67–85; PULSE 68–105; RESP 17–22; TEMP 35.8–37; O2SAT 93–98
[2025-07-04] MEDS: ALBUTEROL/IPRATROPIUM 3 ML AMPUL INH ×4 (01:24→19:21)
[2025-07-04] MEDS: BENZONATATE 100 MG CAPSULE PO ×4 (02:08→21:34)
[2025-07-04] MEDS: ENOXAPARIN 40 MG/0.4 ML SYRINGE SUBCUT ×2 (08:39→21:35)
[2025-07-04] MEDS: SODIUM CHLORIDE 0.9% FLUSH 10 ML IV ×2 (08:39→21:35)
[2025-07-04] MEDS: ACETAMINOPHEN 325 MG TABLET 650 MG PO ×2 (09:48→21:34)
--- NOTE | 2025-07-04 10:20 | CM.DPNOTE ---
DCP Note PROSTHETIC AIDE reviewed EMR per provider, anticipate dc later today. per chart review, pt on room air now. P: anticipate dc home with family later today. no identified safety barriers to dc home at this time. will continue to follow as needed for DCP coordination LILY Miller
[2025-07-04 11:29] LABS: Hemoglobin A1C% w Est Avg Glu 5.5 % (4.0-6.0)
[2025-07-04] MEDS: ONDANSETRON 4 MG/2 ML INJ IV (11:29)
[2025-07-04] MEDS: CALCIUM CARBONATE 500 MG TAB 1000 MG PO ×2 (11:33→21:34)
[2025-07-04] MEDS: PANTOPRAZOLE DR 40 MG TABLET PO (11:35)
--- NOTE | 2025-07-04 16:47 | PM.PN.1 ---
Subjective Subjective Interval history: Summary: She was admitted with reactive airways exacerbation. She has no formal diagnosis of asthma but does have a family history of asthma. She was wheezy initially. She is slowly improving. S: She did have a headache today, relieved with pain medication. She was about 80% improved but still having some dyspnea with exertion. O: NAD, alert and oriented. Fluent speech. Lungs are notable for some expiratory wheezing, normal rate and effort. Heart is regular, no murmur gallop or rub. Abdomen is soft, non distended. Extremities are free of edema. IMAGING: Chest CTA: 1. No pulmonary embolism. 2. Mild bilateral patchy airspace opacity. Suspicious for pneumonia. 3. Small bilateral pulmonary nodules measuring 0.5 cm. -Follow-up chest CT could be considered in 1 year. A/P: 1. Sepsis. Resolved. 2. Community-acquired pneumonia. Improved. 3. Possible undiagnosed asthma with exacerbation. Improving. 4. Morbid obesity, BMI 51. 5. Elevated lactic acid. Improved. PLAN: -she was about 80% improved, we will watch her for another night and continue bronchodilators. Anticipate discharge likely in the morning of July 05. Exam Vital Signs (past 8 hours): - 07/04/25 09:09 07/04/25 13:37 Temperature 96.5 F L Pulse Rate 80 88 Respiratory Rate 17 20 Blood Pressure 143/85 H Pulse Oximetry 96 95 Oxygen Delivery Method Room Air Oxygen Flow Rate 0 Fraction of Inspired Oxygen 32 SaO2/FiO2 Ratio 306 Oxygen Delivery Method Room Air Oxygen Flow Rate 0 Objective Labs 07/03/25 02:10 07/03/25 02:10 Labs: Laboratory Results - last 24 hr 07/04/25 09:40 Hemoglobin A1c 5.5 PFSH Social History household members: family Smoking Status: Former smoker Assessment & Plan Time-Based Coding :: [TOTAL MINUTES] spent with patient and on the chart (including review of chart, obtaining history, exam, reviewing outside data, placing orders, documenting exam and treatment plan, and counseling patient) on [DATE].
[2025-07-04] MEDS: AZITHROMYCIN 500 MG in DEXTROSE 5% IN WATER 250 ML 250 MG IV (18:37)
[2025-07-05 05:53] LABS: Add Manual Diff / Slide Review NO; Hematocrit 39.9 % (36-46); Hemoglobin 13.4 g/dL (12.0-16.0); Lymphocytes Absolute Auto 2500 /uL (1100-4500); Mean Corpuscular HGB Conc 33.6 % (30-36); Mean Corpuscular Hemoglobin 29.0 PG (26-34); Mean Corpuscular Volume 86.5 fL (80-100); Platelet Count 258 X10^3/uL (150-400)
[2025-07-05 06:05] LABS: Blood Urea Nitrogen 14 mg/dL (7-17); Calcium 9.4 mg/dL (8.4-10.2); Carbon Dioxide 21 mmol/L (22-32); Chloride 105 mmol/L (98-107); Estimated Glomerular Filt Rate > 60 mL/min (>60); Glucose 90 mg/dL (70-99); HEMOLYSIS < 15 (0-50); Potassium 3.4 mmol/L (3.4-5.1); Sodium 138 mmol/L (137-145)
[2025-07-05] MEDS: PANTOPRAZOLE DR 40 MG TABLET PO (06:42)
[2025-07-05 07:50] VITALS: PULSE 86; RESP 22; O2SAT 93
[2025-07-05] MEDS: ALBUTEROL/IPRATROPIUM 3 ML AMPUL INH (07:50)
[2025-07-05 08:00] VITALS: BP 128/73; PULSE 75; RESP 16; TEMP 36.5; O2SAT 99
[2025-07-05] MEDS: POTASSIUM CHLORIDE 20 MEQ TAB 40 MEQ PO (09:41)
[2025-07-05] MEDS: BENZONATATE 100 MG CAPSULE PO (09:41)
[2025-07-05] MEDS: ENOXAPARIN 40 MG/0.4 ML SYRINGE SUBCUT (09:41)
[2025-07-05] MEDS: SODIUM CHLORIDE 0.9% FLUSH 10 ML IV (09:45)
--- NOTE | 2025-07-05 11:22 | CM.DPNOTE ---
DCP Note RECREATIONAL AIDE reviewed EMR per provider, on room air, should dc today. no new CM needs P: dc home today with family support. no CM needs identified at this time will continue to follow as needed in case any should arise LILY Miller
--- NOTE | 2025-07-05 13:22 | PC.NURSE ---
RUDDY Apodaca removed PIV, pt tolerated well. Provided pt education to pt and spouse on follow up, medications, symptoms worsening, and activity. Pt and spouse stated all questions answered. No medications in safe, pharm, or train station server drawer. All belongings with pt. Pt escorted out via WC with family to POV by RUDDY Apodaca.
--- NOTE | 2025-07-05 17:58 | PM.DS.1 ---
History of Present Illness History of Present Illness Chief complaint: SOB, UTI? Narrative: Per H&P: 35-year-old female with past medical history morbid obesity presents with complaint of shortness of breath and coughing. Per the patient's report, the patient started to have increased shortness of breath and a productive cough that started over the last few days. The patient also states that she feels dehydrated and generalized weakness. The patient denies any known sick contact or recent travel. The patient denies any prior history of known asthma or COPD. The patient otherwise denies any fever, chills, nausea, vomiting, diarrhea or chest pain. In the emergency room, the patient was hemodynamically stable though tachycardic. The patient was saturating well on room air but was having difficult to eat breathing per our ER physician. The patient also was reported to have wheezing on exam by ER physician. CT angio of the chest shows no PE but suggest possible signs of pneumonia. There is also incidental 0.5 cm nodule found. The patient was given Solu-Medrol DuoNebs. WBC was 15,000 and lactic acid was 2.4. Respiratory viral panel were negative. Patient received IV azithromycin and ceftriaxone and IV fluid. Discharge Providers Provider Date of admission: 07/02/25 20:35 Discharge Date: 07/05/25 Discharge provider: Tanya Aldana MD Summary Hospital Course Discharge Diagnosis: 1. Sepsis, resolved 2. Community-acquired pneumonia, improved 3. Wheezing, secondary to pneumonia versus reactive airways disease 4. Class 3 obesity with BMI of 51.5 5. Lactic acidosis, improved Hospital Course: Patient presented to the emergency department with shortness of breath and cough. She had had a productive cough and worsening shortness of breath for several days prior to admission. She felt generally weak and dehydrated as well. No history of asthma or COPD. In the emergency department she had been tachycardic but did have normal oxygen saturations. CT pulmonary angiogram revealed no evidence of PE but there was evidence of pneumonia. There is incidental findings of bilateral 0.5 cm indeterminate nodules. She did have evidence of sepsis with leukocytosis, lactic acidosis, tachycardia, and evidence of pneumonia. Respiratory viral panel was negative. Patient was placed on IV Rocephin and azithromycin. She did gradually improve over the next several days. She was notably diffusely wheezy on July 04 and therefore remained in the hospital for 1 additional day. On the day of discharge, she continued to be wheezy but noted she felt significantly improved overall. She is being discharged on oral antibiotics and with an albuterol rescue inhaler. She is discharged in stable condition. Status at Discharge Cognitive/behavioral status at discharge: at baseline, oriented Functional status at discharge: independent ambulation Overall status at discharge: patient is progressing back to baseline Time Spent with Patient Time spent: Less than 30 minutes Exam Vital Signs (past 8 hours): Fraction of Inspired Oxygen 32 SaO2/FiO2 Ratio 306 Oxygen Delivery Method Room Air Oxygen Flow Rate 0 Narrative Exam Narrative: GEN: Very pleasant adult female, Alert and oriented x 3, NAD HEENT:NC, Face symmetric CHEST: Respiratory excursions symmetric, diffuse expiratory wheezes bilaterally CV: RRR, no M/R/G ABD: Soft, obese, NT/ND, BT present in all 4 quadrants, body habitus limits exam EXTR: warm, well perfused, no C/C/E SKIN: warm and dry, no rash NEURO: Alert and oriented x 3, nonfocal Objective Labs 07/05/25 05:25 07/05/25 05:25 Labs: Laboratory Results - last 24 hr 07/05/25 05:25 WBC 8.7 RBC 4.61 Hgb 13.4 Hct 39.9 MCV 86.5 MCH 29.0 MCHC 33.6 RDW 15.8 H Plt Count 258 Neut % (Auto) 55.7 Lymph % (Auto) 29.2 [place] % (Auto) 5.4 Eos % (Auto) 8.7 H Baso % (Auto) 1.0 Neut # (Auto) 4900 Lymph # (Auto) 2500 [place] # (Auto) 500 Eos # (Auto) 800 H Baso # (Auto) 100 Sodium 138 Potassium 3.4 Chloride 105 Carbon Dioxide 21 L BUN 14 Creatinine 0.79 Estimated GFR > 60 BUN/Creatinine Ratio 17.7 Glucose 90 Calcium 9.4 PFSH Social History household members: family Smoking Status: Former smoker Discharge Plan Discharge Plan Patient Disposition: Home Provider Discharge Comment: You were admitted with pneumonia. You will continue antibiotics and will have a prescription for an inhaler to use as needed for shortness of breath/wheezing. Continue cough medication as needed. Follow-Up recommended: You should have a repeat CT scan in 12 months to recheck a small spots on your lungs to ensure they are stable or resolved. Return to the ED: Increased shortness of breath/chest pain. Inability to hold down food/fluids/medications. Fevers/chills. Discharge orders & Medications Prescriptions: New benzonatate 100 mg Capsule 100 mg PO TID PRN (Reason: Cough) Qty: 30 0RF cefpodoxime 200 mg tablet 400 mg PO BID Qty: 10 0RF Rx Instructions: must administer with a meal/food azithromycin 500 mg tablet 500 mg PO DAILY 1 Days Qty: 1 0RF Rx Instructions: Take today albuterol sulfate [Ventolin HFA] 90 mcg/actuation HFA aerosol inhaler 2 puff inhalation Q4-6H PRN (Reason: shortness of breath or wheezing) Qty: 8.5 0RF Continued ibuprofen 400 MG tablet 400 mg PO PRN Qty: 0 Discontinued diclofenac sodium 75 mg tablet,delayed release (DR/EC) 75 mg PO BID PRN (Reason: pain) Qty: 30 0RF Discharge Health Status Multidrug resistant organism: No MDRO Diet/Activity/Treatments Diet: Diet as Tolerated and Regular Activity: As tolerated Oxygen: N/A Visit Report/Discharge Packet Instructions: DI for Pneumonia -- Adult Stand Alone Forms: Patient Portal/API, Stroke Signs & Symptoms, Work/Release Restrictions
--- NOTE | 2025-07-18 08:23 | PC.NURSE ---
Late Entry: Lorazepam 2mg/1ml was pulled from xis to be administered, was not administered d/t patient already was asleep, Lorazepam was wasted with another RN on duty but was not documented.
== END 2025-07-05 13:24 | disposition home or self-care (01) | DRG 871 ==
LOC: ED 20:34 → AC 20:35 → ICU 21:09 → AC 07-03 16:52
PROVIDERS: Family Medicine; Admitting Provider Internal Medicine; Emergency Provider Emergency Medicine; Referring Provider Emergency Medicine; Visit Provider Internal Medicine
DX: A41.9 Sepsis, unspecified organism (principal); J18.9 Pneumonia, unspecified organism; Z68.43 Body mass index [BMI] 50.0-59.9, adult; J45.901 Unspecified asthma with (acute) exacerbation; E87.20 Acidosis, unspecified; E66.01 Morbid (severe) obesity due to excess calories; R00.0 Tachycardia, unspecified; Z87.891 Personal history of nicotine dependence; Z83.6 Family history of other diseases of the respiratory system
CPT/HCPCS: 36415; 71275; 80048; 80053; 81001; 81003; 81025; 82550; 82805; 83036; 83605; 84145; 84484; 85025; 87040; 87077; 87154; 87186; 87637; 87797; 93005; 94640; 94760; 94762; 96365; 96367; 96375; 99284; 99291; J0696; J1171; J1650; J2060; J2405; J2919; J7030; J7050; J7060; J7120; J7613; Q9967